=== PATIENT | female | born 2000 | race Caucasian/White ===

== ENCOUNTER 2023-03-20 21:35 | Outpatient (REF) | payer BC, SELFPAY ==
[2023-03-25 12:11] LABS: Age Gdln ACOG Testing Note (.); IGP, rfx Aptima HPV ASCU Note (.)
== END 2023-03-20 21:36 | disposition home or self-care (01) ==
LOC: LAB 21:35
PROVIDERS: Visit Provider Obstetrics & Gynecology
DX: Z01.419 Encounter for gynecological examination (general) (routine) without abnormal findings (principal)
CPT/HCPCS: G0145

== ENCOUNTER 2024-03-23 11:52 | Outpatient (OUT) | payer BC, SELFPAY ==
--- OUTSIDE RECORDS SUMMARY | 2024-03-23 12:13 | XMS_ITS | CCD ---
Author Organization 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 Name Role Phone DR KESHA TATE Attending Unavailable DR KESHA TATE Consulting Unavailable DR KESHA TATE Admitting Unavailable SOLOMON NIXON Attending Unavailable MADAI JURADO Primary Care Physician Ankit SALDANA Attending Unavailable Unavailable Primary Care Provider Unavailabl e Medications Completed/Discontinued Medications Medication Drug Class(es) Dates Sig (Normalized) Sig (Original) {7 (Ethinyl Estradiol 0.035 MG / norgestimate 0.18 MG Oral Tablet) / 7 (Ethinyl Estradiol 0.035 MG / norgestimate 0.215 MG Oral Tablet) / 7 (Ethinyl Estradiol 0.035 MG / norgestimate 0.25 MG Oral Tablet) / 7 (Inert Ingredients 1 MG Oral Tablet) } Pack (1 source) Progestin, Estrogen Start: 09-16-2023 ethinyl estradiol-norgesti mate triphasic 35 mcg Tab 84 EA, 0 Refill(s), TAKE 1 TABLET BY MOUTH EVERY DAY IN THE MORNING, Refills(s) 0 Start Date: 09/16/23 Status: Ordered Problems Problem Classification Problem Date Documented Da te Episodic/Chronic Hemorrhoids (2 sources) Thrombosed hemorrhoids; Translations: [Perianal venous thrombosis] Onset: 09-19-2023 Episodic Immunizations and screening for infectious disease (2 sources) Patient encounter status; Translations: [Encounter for immunization] Onset: 12-09-2023 12-09-2023 Episodic Other nutritional; endocrine; and metabolic disorders (1 source) Body mass index 30+ - obesity 09-19-2023 Chronic Other nutritional; endocrine; and metabolic disorders (1 source) Obesity caused by energy imbalance 09-19-2023 Chronic Other screening for suspected conditions (not mental disorders or infectious disease) (4 sources) Encounter for screening for malignant neoplasm of cervix; Translations: [ENC SCREENING MALIG NEOPLASM CERV] Onset: 03-19-2022 Episodic Results Test Name Value Interpretation Reference Range Yunior Morris 12-09-2023 CNNURSE Nurse Visit (PSBC[facility]) ALEJANDRO DIETZ ([id number]) 2000 F Date Time Provider Department 12/09/23 10:00 AM NURSE PEDS [facility] 2 [facility] During your visit today, we recorded the following information about you: Ray Devi MA 12/13/2023 3:23 PM Signed Verbal permission to treat obtained from patient for flu vaccine. Vaccine given in right arm and tolerated well by patient. Ray Devi MA Allergies As of Date: 12/09/2023 (Not on File) Date Reviewed: Never Reviewed Primary Visit Diagnosis:Encounter for immunization [Z23] Order(s):INFLUENZA VACCINE, AGE 6MO-64YR, TRIVALENT (AFLURIA, FLULAVAL, FLUVIRIN, FLUZONE) [63118PSZ] Order #: [id number] Problem List As Of Date: 12/09/2023 (None) Visit Notes: >> Ray Devi MA SatDec 13, 2023 3:02 PM Status: Signed Verbal permission to treat obtained from patient for flu vaccine. Vaccine given in right arm and tolerated well by patient. Ray Devi MA Encounter Status:Closed by [facility]AY DE[facility]13[facility] [facility] [address] ALEJ[facility]O DI[facility] ([id number]) 2000 F Date Time Provider Department 12/03/23 KEV SALAS During your visit today, we recorded the following information about you: Renetta Alejandro 12/03/2023 10:19 AM Signed [employer] Message left for callback. 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 Left call back number on . December 03, 2023 10:17 AM Renetta Alejandro Allergies As of Date: 12/03/2023 (Not on File) Date Reviewed: Never Reviewed Reason for Visit: Appointment [186] Problem List As Of Date: 12/03/2023 (None) Encounter Status:Closed by RENETTA ALEJANDRO on 12/06/23 Normal [facility] Ambulatory Visit Summaryon 0 09-19-2023 Ambulatory Visit Summary Ambulatory Visit Summary ALEJANDRO DIETZ R :2000 Visit Date:09/19/2023 Ambulatory Visit Instructions Your Care Team Attending Physician - SHANA TIMMONS, Ankit Clay Primary Care Physician - MADAI JURADO MD This Is Your Medications List Contact prescribing physician if questions or concerns ethinyl estradiol-norgestimate (ethinyl estradiol-norgestimate triphasic 35 mcg Tab) Procedures Performed Extraction of wisdom tooth. Discharge Vitals Heart Rate (Peripheral) 88 Respiratory Rate 16 Blood Pressure 153/105 Height 167.6 cm Height 66 in Weight 84.3 kg Weight 185.46 lb BMI 30.01 Medications What When Instructions Unchanged ethinyl estradiol-norgestimate (ethinyl estradiol-norgestimate triphasic 35 mcg Tab) 84 EA, 0 Refill(s), TAKE 1 TABLET BY MOUTH EVERY DAY IN THE MORNING Contact prescribing physician if questions or concerns Allergies No Known Allergies No Known Medication Allergies Problems Ongoing - Any problem that you are currently receiving treatment for. BMI 30.0-30.9,adult Obesity due to excess calories Patient Survey You may receive a survey via text or e-mail asking about your office visit. Please share your experience with us by completing your survey. We appreciate your feedback and thank you for choosing us for your care. Normal [facility] PAP ACOG PANEL 2: 21 to 29on 03-23-2022 . . Normal [facility] Comment on above: Performed By: #### [id number] #### [facility] [address] [place] [address] Dr. Melania Madrigal Age Gdln ACOG Testing - [facility] Comment on above: Performed By: #### [id number] #### [facility] [address] [address] [address] Melania Madrigal DIAGNOSIS: Comment [facility] Comment on above: Result Comment: NEGA TIVE FOR INTRAEPITHELIAL LESION OR MALIGNANCY. Performed By: #### [id number] #### [facility] [address] [place] [address] Dr. Melania Madrigal Methodology: Comment [facility] Comment on above: Result Comment: This liquid based ThinPrep(R) pap test was screened with the use of an image guided system. Performed By: #### [id number] #### [facility] [address] [place] [address] Dr. Melania Madrigal Note: Comment [facility] Comment on above: Result Comment: The Pap smear is a screening test designed to aid in the detection of premalignant and malignant conditions of the uterine cervix. It is not a diagnostic procedure and should not be used as the sole means of detecting cervical cancer. Both false-positive and false-negative reports do occur. . Performed By: #### [id number] #### [facility] [address] [place] [address] Dr. Melania Madrigal Performed by: Comment [facility] Comment on above: Result Comment: Nadiya Engel Cardiac Sonographer (ASCP) Performed By: #### [id number] #### [facility] [address] [place] [address] Dr. Melania Madrigal Reflex Criteria: Comment [facility] Comment on above: Result Comment: The HPV DNA reflex criteria were not met with this specimen result therefore, no HPV testing was performed. . Performed By: #### [id number] #### [facility] [address] [place], [place] [address] Dr. Melania Madrigal Specimen adequacy: Comment Normal [facility] Comment on above: Result Comment: Sati sfactory for evaluation. Endocervical and/or squamous metaplastic cells (endocervical component) are present. Performed By: #### [id number] #### [facility] [address] [address] [address] Melania Madrigal Vital Signs Date Time Vital Sign Value Performing Clinician Faci lit 09-19-2023 11:11-0400 Diastolic blood pressure 103 mm[Hg] Ankit NILL [facility] 09-19-2023 11:11-0400 Mean blood pressure 116 mm[Hg] Ankit NILL [facility] 09-19-2023 11:11-0400 Systolic blood pressure 143 mm[Hg] Ankit NILL [facility] 09-19-2023 10:41-0400 Blood Pressure Location Ankit NILL [facility] 09-19-2023 10:41-0400 Diastolic blood pressure 105 mm[Hg] Ankit NILL [facility] 09-19-2023 10:41-0400 Heart rate 88 /min Ankit NILL [facility] 09-19-2023 10:41-0400 Respiratory rate 16 /min Ankit NILL [facility] 09-19-2023 10:41-0400 Systolic blood pressure 153 mm[Hg] Ankit NILL [facility] Encounters Encounter Date Encounter Type Care Provider Facility Start: 12-09-2023 End: 12-09-2023 ambulatory Facility:[facility] Start: 12-09-2023 End: 12-09-2023 Nursing evaluation of patient and report Nurse Peds [facility] 2 Work Phone: Pediatrics Comment on above: Encounter for immuni zation (Primary Dx) Start: 12-04-2023 End: 12-04-[address] JUDGE.MEDICAL NURSE Work Phone: Pediatrics Comment on above: SB Start: 12-03-2023 End: 12-06-2023 Telephone encounter Kev Salas [facility] JUDGE.MEDICAL NURSE Work Phone: Pediatrics [place] Comment on above: Appointment Start: 09-19-2023 End: 09-19-2023 ambulatory Ankit SALDANA [place] [place] Start: 09-19-2023 End: 09-19-2023 Patient encounter procedure Ankit SALDANA [facility] [place] Start: 09-11-2023 ambulatory Ankit SALDANA Facility:[facility] [place] Start: 03-20-2023 End: 03-20-2023 ambulatory SOLOMON NIXON Not Available Start: 03-19-2022 End: 03-19-[address] KESHA TATE Facility:[facility] Procedures Date Procedure Procedure Detail Performing Clinician Extraction of wisdom tooth Jose Roberto LANERodney Plan of Treatment Date Care Activity Detail Author Start: 11-10-2023 Covid-19 Vaccine ( season) Covid-19 Vaccine ( season) [facility] Start: 10-28-2019 Screening for malign ant neoplasm of cervix Cervical Cancer Screening [facility] Start: 2017 Hepatitis B Vaccine (1 of 3 - + 3-dose series) Hepatitis B Vaccine (1 of 3 - + 3-dose series) [facility] Start: 2017 Urine microalbumin profile DTa P,Tdap,Td Vaccine (1 - Tdap) [facility] Start: 2016 Anxiety Screening Anxiety Screening [facility] Start: 2016 Depression Screening Depression Scre ening [facility] Start: 2016 Hepatitis C screening Hepatitis C Gregory digna [facility] Start: 2016 HIV screening HIV Screening [facility] Start: 2013 HPV Vaccine (1 - 3-d ose series) HPV Vaccine (1 - 3-dose series) [facility] Start: 2012 Peds To Adult Transi tion Annual Assessment Peds To Adult Transition Annual Assessment [facility] Start: 2010 Peds To Adult Transi tion Initial Discussion Peds To Adult Transition Initial Discussion [facility] Immunizations Immunization Date Immunization Notes Care Provider Fa cility 12-09-2023 influenza, seasonal, injectable Nurse 2 Work Phone: [facility] 12-03-2022 influenza virus vaccine, unspecified formulation Ankit SHANA [facility] 02-14-2021 SARS-CoV-2 (COVID-19 ) mRNA-1273 vaccine Ankit LANEL [facility] 07-12-2020 SARS-CoV-2 (COVID-19 ) mRNA BNT-162b2 vax Ankit LANEL [facility] Comment on above: Result Comment: 2023: [facility] 06-14-2020 SARS-CoV-2 (COVID-19 ) mRNA BNT-162b2 vax Ankit HowGoodL [facility] Comment on above: Result Comment: 2023: [facility] Payers Date Payer Category Payer Unknown [employer] PPO [id number] 2022-Present [phone] [id number] [place] [address] PPO [id number] 2022 Unknown [id number] 2000 Unknown [id number] 2000 Unknown [id number] 2000 Unknown [id number] Social History Date Type Detail Facility Start: 09-19-2023 Tobacco smoking status Never smoked tobacco (finding) [facility] Tobacco smoking status Never [facility] Start: 12-09-2023 Sex Assigned At Female F [facility] Tobacco smoking status NHIS Tobacco smoking consumption unknown [facility] Work Phone: Start: 2000 Sex assigned at Not on file [facility] Start: 12-09-2023 History of Social function [facility] Functional Status Date Assessment Result Facility 09-19-2023 Functional Status N/A [facility] Clinical Notes 09-19-2023 to 12-13-2023 Ray Devi MA - 12/13/2023 3:02 PM EDTBRay ramirez MA - 12/13/2023 3:02 PM EDTSemKev leroy APRN.CNP - 12/04/2023 10:45 AM EDT Note Date & Type Note Facility 12-13-2023 Nurse Note Verbal permission to treat obtained from patient for flu vaccine. Vaccine given in right arm and tolerated well by patient. Ray Devi MA [facility] 12-13-2023 Nurse Note Verbal permission to treat obtained from patient for flu vaccine. Vaccine given in right arm and tolerated well by patient. Ray Devi MA documented in this encounter [facility] 12-04-2023 Note HNO ID: [id number] Author: KEV SALAS APRN.CNP Service: ? Author Type: Nurse Practitioner Type: Progress Notes Filed: 12/04/2023 10:47 Note Text: Call placed to patient to schedule with [facility] as requested through online registration. VM left to return call for scheduling. Kev Salas APRN.CNP [facility] 12-04-2023 History of Presen t illness Narrative Call placed to patient to schedule with [facility] as requested through online registration. VM left to return call for scheduling. Kev Salas APRN.CNP documented in this encounter [facility] 12-04-2023 Note Patient Outreach (RENEE SJFK) ALEJANDRO DIETZ ([id number]) 2000 F Date Time Provider Department 12/04/23 KEV SALAS CMSJFK During your visit today, we recorded the following information about you: Kev Salas APRN.CNP 12/04/2023 10:47 AM Signed Call placed to patient to schedule with [facility] as requested through online registration. VM left to return call for scheduling. Kev Salas APRN.CNP Allergies As of Date: 12/04/2023 (Not on File) Date Reviewed: Never Reviewed Reason for Visit: [facility] [Other] Problem List As Of Date: 12/04/2023 (None) Encounter Status:Closed by KEV SALAS on 12/04/23 [facility] 12-03-2023 Telephone encount er Note [employer] Message left for callback. 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 Left call back number on VM. December 03, 2023 10:17 AM Renetta Alejandro [facility] 12-03-2023 Miscellaneous Notes Formattin g of this note is different from the original. [employer] Message left for callback. 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 Left call back number on VM. December 03, 2023 10:17 AM Renetta Alejandro documented in this encounter [facility] 09-19-2023 Note General Surgery Offi ce/Clinic Note Chief Complaint consultation for hemorrhoids HPI Staff 22 year old female presents on self referral consultation for hemorrhoids. Reports noting painful external bulge x 6 weeks. Pain occurs primary after excessive activity and when wiping. Denies bleeding. Has tried Prep H, witch jannette and increasing fiber and water without change in symptoms. Never had hemorrhoid surgery in the past. History of Present Illness 22 yo female presents for evaluation of external hemorrhoid for past 6 weeks; began after staining for bm; initially increased pain and swelling, improvement in pain, no bleeding; using over the counter medications; sore with activity and wiping. bms normal now, no blood or mucous; no previous hemorrhoid surgrery; no asa or NSAID use; no tobacco use. Review of Systems PHQ Score Initial Depression Screen Score: 0 SCORE ROS - Provider Constitutional: no fever, no sweats, no weight loss. Eyes: no glasses, no blurred vision, no visual loss. ENMT: no dentures, no hoarseness, no swallowing difficulties, no hearing loss, no ear infection(s), no nose bleeds. Cardiovascular: normal blood pressure, no chest pain, regular heartbeat, no heart murmur. Respiratory: no shortness of breath, no cough, no asthma, no wheezing. Gastrointestinal: no nausea, no vomiting, no diarrhea, no constipation, no blood in stool, no change in bowel habits, no abdominal pain, no hepatitis. Genitourinary: no kidney stones, no urine infection, no dysuria. Musculoskeletal: no pain, no weakness. Skin: no changing moles, no rash, no skin lumps. Neurologic: no seizures, no epilepsy, no headache. Psychiatric: no emotional or psychiatric problem. Heme/Lymph: no bleeding problems, no anemia, no blood clots, no transfusions. Allergy/Immunologic: no swollen lymph nodes/glands, no IV drug abuse. Other: Additional ROS info: Except as noted in the above Review of Systems and in the History of Present Illness, all other systems have been reviewed and are negative or noncontributory. Physical Exam Vitals & Measurements HR: 88(Peripheral) RR: 16 BP: 143/103 HT: 66 in HT: 167.6 cm WT: 84.3 kg WT: 185.46 lb BMI: 30.01 rectal: left lateral thrombosed 8 mm hemorrhoid; no acute edema no ulceration or bleeding. no fissures. Assessment/Plan 1. Thrombosed external hemorrhoid (K64.5: Perianal venous thrombosis) improving; sitz baths prn; wet wipes; high fiber diet with daily fiber supplement; can excise in surgery if continues to cause pain; call with problems/questions. Follow-up No qualifying data available Problem List/Past Medical History Ongoing BMI 30.0-30.9,adult Obesity due to excess calories Thrombosed external hemorrhoid Historical No qualifying data Procedure/Surgical History Extraction of wisdom tooth. Medications ethinyl estradiol-norgestimate triphasic 35 mcg Tab Allergies No Known Allergies No Known Medication Allergies Social History Alcohol Current, Beer, Wine, Liquor, 1-2 times per month, 09/19/2023 Substance Abuse - Denies Substance Abuse, 09/19/2023 Tobacco Never (less than 100 in lifetime) Tobacco Use:. Never Smokeless Tobacco Use:., 09/19/2023 Family History Family history is negative Immunizations Vaccine Date Status Comments influenza virus vaccine, inactivated 12/03/2022 Recorded SARS-CoV-2 (COVID-19) mRNA-1273 vaccine 02/14/2021 Recorded SARS-CoV-2 (COVID-19) mRNA BNT-162b2 vax 07/12/2020 Recorded 2023-09-16: [facility] SARS-CoV-2 (COVID-19) mRNA BNT-162b2 vax 06/14/2020 Recorded 2023-09-16: [facility] Comment on above: Result Comment: Elec tronically Signed By: SHANA TIMMONS, Ankit Vasquez\Date and Time Signed: 09/19/23 12:17 EDT Evaluation + Plan note No data available for this section [facility] [place] Evaluation note Diagnosis Encounter for immunization- Primary Need for other specified prophylactic vaccination against single bacterial disease documented in this encounter [facility] Discharge instructions No data available for this section [facility] [place] Progress note No data available for this section [facility] [place] Summary Purpose Family History No Family History Records FoundNo Family History Records Found No data available for this section No Family History Records FoundNo Family History Records Found Advance Directives No Advanced Directives Records FoundNo Advanced Directives Records FoundNo Advanced Directives Records FoundNo Advanced Directives Records Found Additional Source Comments INFORMATION SOURCE (unrecogn ized section and content) DATE CREATED AUTHOR 03/23/2022 [facility]ital DATE CREATED AUTHOR AUTHOR'S ORGANIZ ATION 03/21/2023 [facility] EPIC DATE CREATED AUTHOR AUTHOR'S ORGANIZ ATION 09/25/2023 [facility] DATE CREATED AUTHOR AUTHOR'S ORGANIZ ATION 12/31/2023 [facility] Patient Care team informatio n (unrecognized section and content) Personnel Name: MADAI JURADO MD Address: Address: [address] [place] [address] Source Comments (unrecognize d section and content) In the event this informatio n is protected by the Federal Confidentiality of Alcohol and Drug Abuse Patient Records regulations: The Federal rules restrict any use of the information to criminally investigate or prosecute any alcohol or drug abuse [facility] the event this information is protected by the Federal Confidentiality of Alcohol and Drug Abuse Patient Records regulations: The Federal rules restrict any use of the information to criminally investigate or prosecute any alcohol or drug abuse patient.[facility] the event this information is protected by the Federal Confidentiality of Alcohol and Drug Abuse Patient Records regulations: The Federal rules restrict any use of the information to criminally investigate or prosecute any alcohol or drug abuse patient.[facility] Reason for Visit (unrecogniz ed section and content) Reason Onset Date Comments [facility] 12/04/2023 Reason Comments Appointment FOR RECORDS PERTAINING TO PATIENTS WHO ARE OR HAVE BEEN ENROLLED IN A CHEMICAL DEPENDENCY/SUBSTANCEABUSE PROGRAM, SOME INFORMATION MAY BE OMITTED. This clinical summary was aggregated from multiple sources. Caution should be exercised in using it in the provision of clinical care. This summary normalizes information from multiple sources, and as a consequence, information in this document may materially change the coding, format and clinical context of patient data. In addition, data may be omitted in some cases. CLINICAL DECISIONS SHOULD BE BASED ON THE PRIMARY CLINICAL RECORDS. [facility]. provides no warranty or guarantee of the accuracy or completeness of information in this document.
[2024-03-23 12:32] LABS: Basophils Absolute Auto 0.1 10^3/uL (0.0-0.1); Eosinophils Absolute Auto 0.3 10^3/uL (0.0-0.7); Eosinophils Percent Auto 3.6 % (0.9-7.0); Hematocrit 40.1 % (36.0-48.0); Hemoglobin 13.8 g/dL (12.0-16.0); Immature Granulocytes Abs Auto 0.03 10^3/uL (0.00-0.03); Immature Granulocytes Pct Auto 0.4 % (0.0-0.5); Lymphocytes Absolute Auto 3.1 10^3/uL (1.2-3.8); Lymphocytes Percent Auto 37.1 % (20.5-60.0); Mean Corpuscular HGB Conc 34.4 g/dL (29.9-35.2); Mean Corpuscular Hemoglobin 31.8 pg (26.7-34.0); Mean Corpuscular Volume 92.4 fL (81.0-99.0); Mean Platelet Volume 9.7 fL (9.5-13.5); Monocytes Absolute Auto 0.6 10^3/uL (0.3-0.8); Monocytes Percent Auto 7.7 % (1.7-12.0); Neutrophils Absolute Auto 4.2 10^3/uL (1.4-6.5); Neutrophils Percent Auto 50.2 % (43.0-75.0); Platelet Count 378 10^3/uL (150-450); Red Blood Count 4.34 10^6/uL (4.20-5.40); Red Cell Distribution Width 11.7 % (11.0-15.0); White Blood Count 8.3 10^3/uL (4.0-11.0)
[2024-03-23 12:55] LABS: Estimated Average Glucose 103 mg/dL; Glycohemoglobin A1C 5.2 % (4.5-6.2)
[2024-03-23 13:05] LABS: Alanine Aminotransferase 28 U/L (14-59); Albumin Globulin Ratio 0.9; Albumin Level 3.7 g/dL (3.4-5.0); Alkaline Phosphatase 76 U/L (46-116); Anion Gap 11.7; Aspartate Amino Transferase 19 U/L (15-37); BUN Creatinine Ratio 9.9; Bilirubin Total 0.3 mg/dL (0.2-1.0); Calcium 9.8 mg/dL (8.5-10.1); Carbon Dioxide 27.4 mmol/L (21.0-32.0); Chloride 104 mmol/L (98-107); Cholesterol 203 mg/dL (<=200); Estimated GFR (African America >60 (>=60 mL/min/1.73m^2); Estimated GFR (Non-African Ame >60 (>=60 mL/min/1.73m^2); Globulin 4.2 g/dL; Glucose 84 mg/dL (74-106); Potassium 4.1 mmol/L (3.5-5.1); Sodium 139 mmol/L (136-145); Thyroid Stimulating Hormone 2.918 uIU/mL (0.358-3.740); Total Protein 7.9 g/dL (6.4-8.2)
== END 2024-03-23 11:53 | disposition home or self-care (01) ==
LOC: LAB 11:57
PROVIDERS: PCP Family Medicine; Visit Provider Physician Assistant
DX: Z01.419 Encounter for gynecological examination (general) (routine) without abnormal findings (principal)
CPT/HCPCS: 36415; 80053; 82465; 83036; 84443; 85025; 88175

== ENCOUNTER 2024-03-23 20:40 | Outpatient (REF) | payer BC, SELFPAY ==
--- OUTSIDE RECORDS SUMMARY | 2024-03-23 20:44 | XMS_ITS | CCD ---
Author Organization [facility] Informformerly [facility] Partnership [facility] Care Team Providers Care Machine Builder Name Role Phone DR KESHA TATE Attending Unavailable DR KESHA TATE Consulting Unavailable DR KESHA TATE Admitting Unavailable SOLOMON WASHINGTON Attending Unavailable DEJA JURADO Primary Care Physician Ankit SALDANA Attending Unavailable Unavailable Primary Care Provider UnavailDeja Quevedo MD Primary Care Provider Medications Current Medications Medication Drug Class(es) Dates Sig (Normalized) Sig (Original) Ethinyl Estradiol / norgestimate (7 sources) Progestin, Estrogen Start: 03-23-2024 take 1 tablet by mouth in the morning norgestimate-ethi nyl estradiol (Ortho Tri-Cyclen,Trines sa) 0.18/0.215/0.25 MG-35 MCG tablet Indications: control counseling Take 1 tablet by mouth in the morning. 84 tablet 3 03/23/2024 Active Start: 03-06-2024 End: 03-23-2024 take 1 tablet by mouth once daily in the morning norgestimate-ethinyl estradiol (Ortho Tri-Cyclen,Trinessa) 0.18/0.215/0.25 MG-35 MCG tablet Indications: control counseling TAKE 1 TABLET BY MOUTH EVERY DAY IN THE MORNING 84 tablet 3 03/06/2024 03/23/2024 Discontinued (Reorder) Start: 03-06-2024 take 1 tablet by satish th once daily in the morning norgestimate-ethinyl estradiol (Ortho Tri-Cyclen,Trinessa) 0.18/0.215/0.25 MG-35 MCG tablet Indications: control counseling TAKE 1 TABLET BY MOUTH EVERY DAY IN THE MORNING 84 tablet 3 03/06/2024 Active Start: 09-16-2023 ethinyl estrad iol-norgestimate triphasic 35 mcg Tab 84 EA, 0 Refill(s), TAKE 1 TABLET BY MOUTH EVERY DAY IN THE MORNING, Refills(s) 0 Start Date: 09/16/23 Status: Ordered Problems Problem Classification Problem Date Documented Da te Episodic/Chronic Hemorrhoids (2 sources) Thrombosed hemorrhoids; Translations: [Perianal venous thrombosis] Onset: 09-19-2023 Episodic Immunizations and screening for infectious disease (4 sources) Patient encounter status; Translations: [Encounter for [...] Results Test Name Value Interpretation Reference Range Facil ity ALL CBC WITH AUTO DIFFon BASOPHILS ABSOLUTE AUTO 0.1 [facility] Basophils/100 WBC (Bld) 1 % 0.2 - 2.0 % [facility] Eosinophils/100 WBC (Bld) 3.6 % 0.9 - 7.0 % [facility] Erythrocyte distribution width (RBC) [Ratio] 11.7 % 11.0 - 15.0 % [facility] Hematocrit (Bld) [Volume fraction] 40.1 % 36.0 - 48.0 % [facility] ([facility] [Mass/Vol] 13.8 g/dL 12.0 - 16.0 g/dL [facility] IMMATURE GRANULOCYTES ABS AUTO 0.03 [facility] Immature granulocytes/100 WBC (Bld) 0.4 % 0.0 - 0.5 % [facility] LYMPHOCYTES ABSOLUTE AUTO 3.1 [facility] Lymphocytes/100 WBC (Bld) 37.1 % 20.5 - 60.0 % [facility] MCH (RBC) [Entitic mass] 31.8 pg 26.7 - 34.0 pg [facility] MCHC (RBC) [Mass/Vol] 34.4 g/dL 29.9 - 35.2 g/dL [facility] MCV (RBC) [Entitic vol] 92.4 fL 81.0 - 99.0 fL [facility] MONOCYTES ABSOLUTE AUTO 0.6 [facility] Monocytes/100 WBC (Bld) 7.7 % 1.7 - 12.0 % [facility] NEUTROPHILS ABSOLUTE AUTO 4.2 [facility] Neutrophils/100 WBC (Bld) 50.2 % 43.0 - 75.0 % [facility] Platelet mean volume (Bld) [Entitic vol] 9.7 fL 9.5 - 13.5 fL [facility] EO # 0.3 [facility] PLT 378 [facility] RBC 4.34 [facility] WBC 8.3 [facility] CNNURSEon 12-09-[address] [facility] ([facility] ALEJANDRO DIETZ ([id number]) 2000 F Date Time Provider Department 12/09/23 10:00 AM NURSE IAN [facility] 2 PSBCMB During your visit today, we [...] AGE 6MO-64YR, TRIVALENT (AFLURIA, FLULAVAL, FLUVIRIN, FLUZONE) [[id number]] Order #: [id number] Problem List As Of Date: 12/09/2023 (None) Visit Notes: >> Ray Devi MA SatDec 13, 2023 3:02 PM Status: Signed Verbal permission to treat obtained from patient for flu vaccine. Vaccine given in right arm and tolerated well by patient. Ray Devi MA Encounter Status:Closed by RAY DEVI on 12/13/23 [facility] 12-03-2023 CNPN Telephone (PELKHS) ALEJANDRO DIETZ ([id number]) 2000 F Date Time Provider Department 12/03/23 KEV SALAS During your visit today, we recorded the following information about you: Renetta Alejandro 12/03/2023 10:19 AM Signed [employer] Message left for callback. 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 Left call back number on . December 03, 2023 10:17 AM Renetta Alejandro Allergies As of Date: 12/03/2023 (Not on File) Date Reviewed: Never Reviewed Reason for Visit: Appointment [186] Problem List As Of Date: 12/03/2023 (None) Encounter Status:Closed by RENETTA ALEJANDRO on 12/06/23 [facility] Ambulatory Visit Summaryon 0 09-19-2023 Ambulatory Visit Summary Ambulatory Visit Summary ALEJANDRO DIETZ :2000 Visit Date:09/19/2023 Ambulatory Visit Instructions Your Care Team Attending Physician - SHANA TIMMONS, Ankit Clay Primary Care Physician - RHIANNON TIMMONS, DEJA This Is Your Medications List Contact prescribing [...] for choosing us for your care. Normal [facility] PAP ACOG PANEL 2: 21 to 29on 03-23-2022 . . Normal [facility] Comment on above: Performed By: #### [id number] #### [facility] [address] [place] [address] Dr. Melania Madrigal Age Gdln ACOG Testing - [facility] Comment on above: Performed By: #### [id number] #### [facility] [address] [address] [address] Melania Madrigal DIAGNOSIS: Comment [facility] Comment on above: Result Comment: NEGA TIVE FOR INTRAEPITHELIAL LESION OR MALIGNANCY. Performed By: #### [id number] #### [facility] [address] [place] [address] Dr. Melania Madrigal Methodology: Comment [facility] Comment on above: Result Comment: This liquid based ThinPrep(R) pap test was screened with the use of an image guided system. Performed By: #### [id number] #### [facility] [address] [address] [address] Melania Madrigal Note: Comment [facility] Comment on above: Result Comment: The Pap smear is a screening test designed to aid in the detection of premalignant and malignant conditions of the uterine cervix. It is not a diagnostic procedure and should not be used as the sole means of detecting cervical cancer. Both false-positive and false-negative reports do occur. . Performed By: #### [id number] #### [facility] [address] [address] [address] Melania Madrigal Performed by: Comment Normal [facility] Comment on above: Result Comment: Nadiya Engel, Vice President Of Advertising (ASCP) Performed By: #### 4 [id number] #### [facility] [address] [address] [address] Melania Madrigal Reflex Criteria: Comment Normal [facility] Comment on above: Result Comment: The HPV DNA reflex criteria were not met with this specimen result therefore, no HPV testing was performed. . Performed By: #### 4 [id number] #### [facility] [address] [address] [address] Melania Madrigal Specimen adequacy: Comment Normal [facility] Comment on above: Result Comment: Sati sfactory for evaluation. Endocervical and/or squamous metaplastic cells (endocervical component) are present. Performed By: #### 4 [id number] #### [facility] [address] [address] [address] Melania Madrigal Vital Signs Date Time Vital Sign Value Performing Clinician Facility 03-23-2024 11:21-0500 Body mass index (BMI) [Ratio] 30.38 kg/m2 Mylene LUCAS Work Phone: [facility] 03-23-2024 11:21-0500 Body weight 88 kg Mylene LUCAS Work Phone: [facility] 03-23-2024 11:21-0500 Diastolic blood pressure 82 mm[Hg] Mylene LUCAS Work Phone: [facility] 03-23-2024 11:21-0500 Systolic blood pressure 126 mm[Hg] Mylene LUCAS Work Phone: [facility] 09-19-2023 11:11-0400 Diastolic blood pressure 103 mm[Hg] Ankit SALDANA [facility] [place] 09-19-2023 11:11-0400 Mean blood pressure 116 mm[Hg] Ankit SALDANA [facility] 09-19-2023 11:11-0400 Systolic blood pressure 143 mm[Hg] Ankit LANEL [facility] 09-19-2023 10:41-0400 Blood Pressure Location Ankit LANEL [facility] 09-19-2023 10:41-0400 Diastolic blood pressure 105 mm[Hg] Ankit NILL [facility] 09-19-2023 10:41-0400 Heart rate 88 /min Ankit LANEL [facility] 09-19-2023 10:41-0400 Respiratory rate 16 /min Ankit LANEL [facility] 09-19-2023 10:41-0400 Systolic blood pressure 153 mm[Hg] Ankit LANEL [facility] Encounters Encounter Date Encounter Type Care Provider Facility Start: 03-23-2024 End: 03-23-2024 Bamboo flowsheet Mylene LUCAS Work Phone: [facility] Start: 03-23-2024 End: 03-23-2024 Bamboo flowsheet Mylene LUCAS Work Phone: [facility] Start: 03-23-2024 End: 03-23-2024 [facility] Result Encounter Mylene LUCAS Work Phone: [facility] Unsolicited Start: 03-23-2024 End: 03-23-2024 Patient encounter procedure Mylene LUCAS Work Phone: [facility] Start: 03-23-2024 End: 03-23-2024 Periodic preventive med est patient 18-39 yrs Mylene LUCAS Work Phone: [facility] Comment on above: Well woman exam with routine gynecological exam; control counseling Start: 12-09-2023 End: 12-09-2023 ambulatory Facility:[facility] Start: 12-09-2023 End: 12-09-2023 Nursing evaluation of patient and report Nurse Peds [facility] 2 Work Phone: Pediatrics Comment on above: Encounter for immuni zation (Primary Dx) Start: 12-04-2023 End: 12-04-2023 ambulatory Kev Miratore SUGARCANE RESEARCH TECHNICIAN.ETHNOGRAPHIC MATERIALS CONSERVATOR Work Phone: Pediatrics Comment on above: SB Start: 12-03-2023 End: 12-06-2023 Telephone encounter Kev Terrie SUGARCANE RESEARCH TECHNICIAN.ETHNOGRAPHIC MATERIALS CONSERVATOR Work Phone: [facility] [place] Comment on above: Appointment Start: 09-19-2023 End: 09-19-2023 ambulatory Ankit SALDANA Facility:[facility] Start: 09-19-2023 End: 09-19-2023 Patient encounter procedure Ankit SALDANA [facility] [place] Start: 09-11-2023 ambulatory Ankit SALDANA Facility:[facility] Start: 03-20-2023 End: 03-20-2023 ambulatory SOLOMON WASHINGTON Not Available Start: 03-19-2022 End: 03-19-[address] KESHA TATE Facility:[facility]1 Procedures Date Procedure Procedure Detail Performing Clinician Start: 03-23-2024 ALL CBC WITH AUTO DIFF Mylene LUCAS Work Phone: Extraction of wisdom tooth Ankit SALDANA Plan of Treatment Date Care Activity Detail Author Start: 03-29-2025 End: 03-29-2025 Patient encounter procedure 03/29/2025 9:00 AM EST Office Visit [facility] [address] [place] [id number] Solomon Washington, [address] [place] [address] [facility] Start: 03-23-2024 End: 03-23-2024 Patient encounter procedure 03/23/2024 11:00 AM EST Office Visit [facility] [address] [address] Mylene Mendes PA [address] [place], [place] [id number] Arrived [facility] Comment on above: Arrived Start: 11-10-2023 Covid-19 Vaccine () Covid-19 Vaccine () [facility] Start: 10-28-2019 Screening for malign ant neoplasm of cervix Cervical Cancer Screening [facility] Start: 2017 Hepatitis B Vaccine (1 of 3 - 19+ 3-dose series) Hepatitis B Vaccine (1 of 3 - + 3-dose series) [facility] Start: 2017 Urine microalbumin profile DTaP,Tdap,Td Vaccine (1 - Tdap) [facility] Start: 2016 Anxiety Screening Anxiety Screening [facility] Start: 2016 Depression Screening Depression Scre ening [facility] Start: 2016 Hepatitis C screening Hepatitis C Sc reening [facility] Start: 2016 HIV screening HIV Screening [facility] Start: 2013 HPV Vaccine (1 - 3-d ose series) HPV Vaccine (1 - 3-dose series) [facility] Start: 2012 Peds To Adult Transi tion Annual Assessment Peds To Adult Transition Annual Assessment [facility] Start: 2010 Peds To Adult Transi tion Initial Discussion Peds To Adult Transition Initial Discussion [facility] CBC W Auto Different ial panel - Blood CBC auto differential Lab Routine Well woman exam with routine gynecological exam Ordered: 03/23/2024 [facility] Comment on above: Ordered: 03/23/2024 Cholesterol [Mass/volume] in Serum or Plasma Cholesterol, total Lab Routine Well woman exam with routine gynecological exam Ordered: 03/23/2024 [facility] Comment on above: Ordered: 03/23/2024 Comprehensive metabo lic 2000 panel - Serum or Plasma Comprehensive metabolic panel Lab Routine Well woman exam with routine gynecological exam Ordered: 03/23/2024 [facility] Comment on above: Ordered: 03/23/2024 Cytology Cervical or vaginal smear or scraping study Pap Smear Pathology and Cytology Routine Well woman exam with routine gynecological exam Ordered: 03/23/2024 [facility] [employer] Work Phone: Comment on above: Ordered: 03/23/2024 Hemoglobin A1c/Hemoglobin.total in Blood Hemoglobin A1c Lab Routine Well woman exam with routine gynecological exam Ordered: 03/23/2024 [facility] [employer] Comment on above: Ordered: 03/23/2024 Thyrotropin [Units/volume] in Serum or Plasma TSH Lab Routine Well woman exam with routine gynecological exam Ordered: 03/23/2024 [facility] [employer] Comment on above: Ordered: 03/23/2024 Immunizations Immunization Date Immunization Notes Care Provider Fa [facility] 12-09-2023 influenza, seasonal, injectable Nurse 2 Work Phone: [facility] 12-03-2022 influenza virus vaccine, unspecified formulation Ankit [employer] [facility] 02-14-2021 SARS-CoV-2 (COVID-19 ) mRNA-1273 vaccine [employer]kit [employer] [facility] 07-12-2020 SARS-CoV-2 (COVID-19 ) mRNA BNT-162b2 vax [employer] [facility] Comment on above: Result Comment: 2023: [facility] 06-14-2020 SARS-CoV-2 (COVID-19 ) mRNA BNT-162b2 vax Ankit [employer] [facility] Comment on above: Result Comment: 2023: [facility] Payers Date Payer Category [facility] [id number] 2022 Unknown [employer]EVE [employer] SS PPO [id number] 2022-Present [phone] [address] [place] [id number] PPO [id number] 2022 Unknown [id number] 2000 Unknown [id number] 2000 Unknown [id number] 2000 Unknown [id number] Social History Date Type Detail Facility Start: 02-27-2023 End: 09-19-2023 Tobacco smoking status Never smoked tobacco (finding) [facility] Tobacco smoking status Never [facility] [place] Start: 12-09-2023 End: 03-23-2024 Sex Assigned At Female [facility] Tobacco smoking status MSIS Tobacco smoking consumption unknown [facility] Work Phone: Start: 2000 Sex assigned at Not on file [facility] Start: 12-09-2023 End: 03-23-2024 History of Social function [facility] Functional Status Date Assessment Result Facility 09-19-2023 Functional Status N/A [facility] [place] Clinical Notes 09-19-2023 to 03-23-2024 SHAYY Wells - 03/23/2024 11:00 AM Ray Preciado MA - 12/13/2023 3:02 PM Ray Carrero MA - 12/13/2023 3:02 PM Kev Alfredo, KEELEY.ETHNOGRAPHIC MATERIALS CONSERVATOR - 12/04/2023 10:45 AM EDT Note Date & Type Note Facility 03-23-2024 History of Presen t illness Narrative Reason for Appointment: Patient ID: Alejandro Dietz is a 23 y.o. female who presents for Well Women Visit Patient presents today for Annual Exam. MEDICATIONS Current Outpatient Medications Medication Instructions norgestimate-ethinyl estradiol (Ortho Tri-Cyclen,Trinessa) 0.18/0.215/0.25 MG-35 MCG tablet 1 tablet, Oral, Every morning ALLERGIES No Known Allergies PROBLEMS Active Ambulatory Problems Diagnosis Date Noted No Active Ambulatory Problems Resolved Ambulatory Problems Diagnosis Date Noted No Resolved Ambulatory Problems Past Medical History: Diagnosis Date BMI 27.0-27.9,adult Encounter for gynecological examination (general) (routine) without abnormal findings History of irregular menstrual cycles Uses oral contraception HISTORY PAST MEDICAL HISTORY SOCIAL HISTORY Past Medical History: Diagnosis Date BMI 27.0-27.9,adult Encounter for gynecological examination (general) (routine) without abnormal findings History of irregular menstrual cycles Uses oral contraception Social History Tobacco Use Smoking status: Never Smokeless tobacco: Not on file Substance Use Topics Alcohol use: Not on file Drug use: Never FAMILY HISTORY Family History Problem Relation Name Age of Onset Breast cancer Maternal Grandmother SURGICAL HISTORY No past surgical history on file. REVIEW OF SYSTEMS Review of Systems: Review of Systems Constitutional: Negative. HENT: Negative. Eyes: Negative. Respiratory: Negative. Cardiovascular: Negative. Gastrointestinal: Negative. Genitourinary: Negative. Musculoskeletal: Negative. Skin: Negative. Neurological: Negative. All other systems reviewed and are negative. Hematological: Negative. Endocrine: Negative. Allergic/Immunologic: Negative. OBJECTIVE Objective: Physical Exam Constitutional: Appearance: Normal appearance. She is normal weight. HENT: Head: Normocephalic. Cardiovascular: Rate and Rhythm: Normal rate. Pulses: Normal pulses. Pulmonary: Effort: Pulmonary effort is normal. Breath sounds: Normal breath sounds. Abdominal: Palpations: Abdomen is soft. Musculoskeletal: General: Normal range of motion. Neurological: General: No focal deficit present. Mental Status: She is alert and oriented to person, place, and time. Psychiatric: Mood and Affect: Mood normal. Behavior: Behavior normal. Thought Content: Thought content normal. Judgment: Judgment normal. Vitals and nursing note reviewed. Vitals: Estimated body mass index is 30.38 kg/m as calculated from the following: Height as of 24: 5' 7 . Weight as of this encounter: 194 lb. BP: 126/82 Patient's last menstrual period was 03/09/2024. ASSESSMENT & PLAN ICD-10-CM 1. Well woman exam with routine gynecological exam Z01.419 Pap Smear Hemoglobin A1c CBC auto differential TSH Cholesterol, total Comprehensive metabolic panel 2. control counseling Z30.09 norgestimate-ethinyl estradiol (Ortho Tri-Cyclen,Trinessa) 0.18/0.215/0.25 MG-35 MCG tablet Annual Exam: Patient presents today for an annual exam. Patient states she is doing well and has no complaints. Pap was obtained without difficulty. Orders Placed This Encounter Procedures Hemoglobin A1c CBC auto differential TSH Cholesterol, total Comprehensive metabolic panel Follow Up: Patient is to return in one year for annual unless needed otherwise. Documented by SHAYY Wells on behalf of: SHAYY Wells documented in this encounter [facility] 12-13-2023 Nurse Note Verbal permission to treat obtained from patient for flu vaccine. Vaccine given in right arm and tolerated well by patient. Ray Devi MA [facility] 12-13-2023 Nurse Note Verbal permission to treat obtained from patient for flu vaccine. Vaccine given in right arm and tolerated well by patient. Ray Devi MA documented in this encounter [facility] 12-04-2023 Note HNO ID: [id number] Author: KEV SALAS APRN.ETHNOGRAPHIC MATERIALS CONSERVATOR Service: ? Author Type: Nurse Practitioner Type: Progress Notes Filed: 12/04/2023 10:47 Note Text: Call placed to patient to schedule with [facility] as requested through online registration. left to return call for scheduling. Kev Salas APRN.CNP [facility] 12-04-2023 History of Presen t illness Narrative Call placed to patient to schedule with [facility] as requested through online registration. left to return call for scheduling. Kev Salas APRN.CNP documented in this encounter [facility] 12-04-2023 Note Patient Outreach ( [facility]) ALEJANDRO DIETZ ([id number]) 2000 F Date Time Provider Department 12/04/23 KEV SALAS [facility] During your visit today, we recorded the following information about you: Kev Salas APRN.CNP 12/04/2023 10:47 AM Signed Call placed to patient to schedule with [facility] as requested through online registration. left to return call for scheduling. Kev Salas APRN.CNP Allergies As of Date: 12/04/2023 (Not on File) Date Reviewed: Never Reviewed Reason for Visit: [facility] [Other] Problem List As Of Date: 12/04/2023 (None) Encounter Status:Closed by KEV SALAS on 12/04/23 [facility] 12-03-2023 Telephone encounter Note [employer] Message left for callback. 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 Left call back number on . December 03, 2023 10:17 AM Renetta Alejandro [facility] 12-03-2023 Miscellaneous Notes [employer] Message left for callback. 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 Left call back number on . December 03, 2023 10:17 AM Renetta Alejandro documented in this encounter [facility] 09-19-2023 Note General Surgery Offi ce/Clinic [...] mRNA BNT-162b2 vax 06/14/2020 Recorded 2023-09-16: [facility] Comment on above: Result Comment: Elec tronically Signed By: SHANA TIMMONS, Ankit R\.br\Date and Time Signed: 09/19/23 12:17 EDT Evaluation + Plan note No data available for this section [facility] [place] Evaluation note Diagnosis Encounter for immunization- Primary Need for other specified prophylactic vaccination against single bacterial disease [facility] Well woman exam with routine gynecological exam Routine gynecological examination control counseling [facility] this encounter [facility] Dis[facility] instructions No data available for this section [facility] Progress note No data available for this section [facility] Summary Purpose Family History No Family History Records FoundNo Family History Records Found No data available for this section No Family History Records FoundNo Family History Records Found Advance Directives No Advanced Directives Records FoundNo Advanced Directives Records FoundNo Advanced Directives Records FoundNo Advanced Directives Records Found Additional Source Comments INFORMATION SOURCE (unrecogn ized section and content) DATE CREATED AUTHOR 03/23/2022 [facility] DATE CREATED AUTHOR AUTHOR'S ORGANIZ ATION 03/21/2023 [facility] DATE CREATED AUTHOR AUTHOR'S ORGANIZ ATION 09/25/2023 [facility] DATE CREATED AUTHOR AUTHOR'S ORGANIZ ATION 12/31/2023 [facility] Patient Care team informatio n (unrecognized section and content) Machine Builder Relationship Specialty Start Date End Date Deja Jurado MD [address] [place] [id number] PCP - General Family Medicine 03/20/23 Machine Builder Relationship Specialty Start Date End Date Deja Jurado MD [address] [place] [id number] PCP - General Family Medicine 03/20/23 Source Comments (unrecognize d section and content) In the event this informatio n is protected by the Federal Confidentiality of Alcohol and Drug Abuse Patient Records regulations: The Federal rules restrict any use of the information to criminally investigate or prosecute any alcohol or drug abuse patient.[facility]In the event this information is protected by the Federal Confidentiality of Alcohol and Drug Abuse Patient Records regulations: The Federal rules restrict any use of the information to criminally investigate or prosecute any alcohol or drug abuse patient.[facility] the event this information is protected by the Federal Confidentiality of Alcohol and Drug Abuse Patient Records regulations: The Federal rules restrict any use of the information to criminally investigate or prosecute any alcohol or drug abuse patient.[facility] Reason for Visit (unrecogniz ed section and content) Reason Onset Date Comments [facility] 12/04/2023 Reason Comments Appointment Reason Comments [facility] Visit FOR RECORDS PERTAINING TO PATIENTS WHO ARE [...] BE BASED ON THE PRIMARY CLINICAL RECORDS. [employer] provides no warranty or guarantee of the accuracy or completeness of information in this document.
== END 2024-03-23 20:41 | disposition home or self-care (01) ==
LOC: LAB 20:40
PROVIDERS: PCP Family Medicine; Visit Provider Physician Assistant
DX: Z01.419 Encounter for gynecological examination (general) (routine) without abnormal findings (principal)
CPT/HCPCS: 88175